=== PATIENT | female | born 1990 ===

== ENCOUNTER 2018-02-06 16:20 | Emergency (ER) | payer MEDICAID ==
[2018-02-06 16:21] VITALS: BMI 26.6
[2018-02-06 16:38] VITALS: BP 116/71; PULSE 70; TEMP 98.8; O2SAT 99
--- NOTE | 2018-02-06 17:19 | C.PDOC ---
Time Seen by Provider: 02/06/18 17:01 Chief Complaint (Nursing): Abnormal Skin Integrity Past Medical History Vital Signs: Last Vital Signs Temp 98.8 F 02/06/18 16:36 Pulse 70 02/06/18 16:36 Resp 48 H 02/06/18 16:36 BP 116/71 02/06/18 16:36 Pulse Ox 99 02/06/18 16:36 [facility] ARTIF RUPT MEMBRANES NEC (08/15/13) MANUAL ASSIST DELIV NEC (08/15/13) REPAIR OB LACERATION NEC (08/15/13) SURG INDUCT LABOR NEC (08/15/13) - Social History Hx Alcohol Use: No Hx Substance Use: No - Immunization History Hx Tetanus Toxoid Vaccination: No Hx Influenza Vaccination: No Hx Pneumococcal Vaccination: No ED Course And Treatment O2 Sat by Pulse Oximetry: 99 Disposition - Disposition
--- NOTE | 2018-02-06 17:23 | C.PDOC ---
History Of Present Illness 27 yo female came in for vaginal swelling x 2 weeks. Pt states that her menses ended on 01/22/18, after which she was having intercourse with her who felt some swelling in the area. In the last few days, the swelling increased prompting ED visit. Notes scant vaginal discharge. Denies abdominal pain, back pain, fever, n/v, dizziness or symptoms. Also reports starting a new control with her menses. Time Seen by Provider: 02/06/18 17:01 Chief Complaint (Nursing): Abnormal Skin Integrity History Per: Patient History/Exam Limitations: no limitations Onset/Duration Of Symptoms: Hrs Current Symptoms Are (Timing): Still Present Past Medical History Vital Signs: Last Vital Signs Temp 98.8 F 02/06/18 16:36 Pulse 70 02/06/18 16:36 Resp 48 H 02/06/18 16:36 BP 116/71 02/06/18 16:36 Pulse Ox 99 02/06/18 16:36 - [facility] Procedures ARTIF RUPT MEMBRANES NEC (08/15/13) MANUAL ASSIST DELIV NEC (08/15/13) REPAIR OB LACERATION NEC (08/15/13) SURG INDUCT LABOR NEC (08/15/13) Family History: States: Unknown Family Hx - Social History Hx Alcohol Use: No Hx Substance Use: No - Immunization History Hx Tetanus Toxoid Vaccination: No Hx Influenza Vaccination: No Hx Pneumococcal Vaccination: No Review Of Systems Except As Marked, All Systems Reviewed And Found Negative. Genitourinary: Positive for: Vaginal Discharge Physical Exam - Physical Exam Appears: Well, Non-toxic, No Acute Distress Skin: Normal Color, Warm, Dry Head: Atraumatic, Normacephalic Eye(s): bilateral: Normal Inspection, EOMI Nose: Normal Oral Mucosa: Moist Neck: Normal, Normal ROM, Supple Chest: Symmetrical Cardiovascular: Rhythm Regular Respiratory: Normal Breath Sounds, No Accessory Muscle Use Gastrointestinal/Abdominal: Normal Exam, Soft, No Tenderness Back: Normal Inspection, No CVA Tenderness, No Vertebral Tenderness Pelvic: Normal External Exam, Other ((+) FB in vault- tampon . FB was removed, some white vaginal discharge noted with foul odor. ) Extremity: Normal ROM Neurological/Psych: Oriented x3, Normal Speech Gait: Steady ED Course And Treatment O2 Sat by Pulse Oximetry: 99 Progress Note: Discussed symtpoms of concern and return precautions. Instructed to follow up with her [facility]ER in 1-2 days. Case discussed with Dr Contreras, agreed upon plan and treatment. Disposition - Disposition Disposition: HOME/ ROUTINE Disposition Time: 17:20 Condition: STABLE Additional Instructions: Follow up with your [facility] in 1-2 days. Return to ER if symptoms persist or worsen. Prescriptions: Metronidazole [Flagyl] 500 mg PO BID #14 tab Instructions: Toxic Shock Syndrome (DC) Forms: [employer] (Irish) - Clinical Impression Clinical Impression: Vaginal foreign body
[2018-02-06 18:04] VITALS: RESP 18
== END 2018-02-06 17:26 | disposition home or self-care (01) ==
LOC: C.ER 16:20
DX: T19.2XXA Foreign body in vulva and vagina, initial encounter (principal); X58.XXXA Exposure to other specified factors, initial encounter